=== PATIENT | female | born 1990 | race Caucasian/White ===

== ENCOUNTER → 2021-02-20 | Outpatient (CLI) | payer BC ==
[~2021-02-20] MED LIST: BENTYL 20MG TAB20 MG PO; LODINE CAP 300300 MG PO; ZOFRAN ODT 4 MG4 MG PO
== END ==
LOC: CT 08:23
DX: R26.9 Unspecified abnormalities of gait and mobility (principal)
CPT/HCPCS: 70470; Q9963

== ENCOUNTER → 2022-03-05 | Outpatient (CLI) | payer BC | LOC: KOH-I 08:00 | DX: K76.0 Fatty (change of) liver, not elsewhere classified (principal); R10.11 Right upper quadrant pain | CPT/HCPCS: 76705; 76775 ==